=== PATIENT | male | born 1955 | race Caucasian/White ===

== ENCOUNTER 2021-05-11 09:30 | Inpatient (IN) | payer OTHER ==
[~2021-05-11] VITALS: Ht 177.8 cm; Wt 125.2 kg
[~2021-05-11 09:30] MED LIST: SINGULAIR; ZYRTEC
[2021-05-11 09:46] VITALS: BP 137/91
[2021-05-11] MEDS ORDERED: LISINOPRIL10 MG PO (09:52)
[2021-05-11] MEDS ORDERED: XARELTO20 MG PO (09:53)
[2021-05-11] MEDS ORDERED: EYE DROPS (09:53)
[2021-05-11 10:24] LABS: ABSOLUTE EOSINOPHILS 0.1 thou/uL (0.0-0.7); ABSOLUTE LYMPHOCYTES 1.5 thou/uL (0.8-5.3); ABSOLUTE MONOCYTES 0.5 thou/uL (0.0-1.2); ABSOLUTE NEUTROPHILS 3.6 thou/uL (1.6-8.1); BASOPHILS 0.7 %; HEMATOCRIT 40.1 % (42.0-52.0); HEMOGLOBIN 13.6 gm/dL (14.0-18.0); LYMPHOCYTES 25.2 %; MCH 26.8 pg (26.0-34.0); MCHC 33.8 g/dL (28.0-37.0); MCV 79.4 fL (80.0-100.0); MONOCYTES 9.3 %; MPV 7.3 fl. (7.2-11.1); NUCLEATED RBCS 0 /100WBC; PLATELET COUNT* 217 thou/uL (150-400); POLYS 62.8 %; RBC 5.05 mil/uL (4.50-6.00); RDW-CV 13.8 % (10.5-14.5); WBC 5.8 thou/uL (4.0-11.0)
[2021-05-11 10:29] LABS: CALCIUM 8.8 mg/dL (8.5-10.1); CREATININE 1.1 mg/dL (0.6-1.3); POTASSIUM 4.1 mmol/L (3.5-5.1)
[2021-05-11 10:40] LABS: ALBUMIN 3.8 g/dL (3.4-5.0); TOTAL BILIRUBIN 0.7 mg/dL (<0.1-1.0); TOTAL PROTEIN 7.9 g/dL (6.4-8.2)
[2021-05-11 11:11] LABS: APTT 22.6 Seconds (25.0-31.3); PROTIME 10.8 Seconds (9.20-11.50)
--- NOTE | 2021-05-11 14:38 | EKG ---
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1955 Requested By: Malathi Sweet Order Number: [id number] MD: Stanley Page Measurements Intervals [place] Rate: 101 P: 61 NM: 168 QRS: -37 QRSD: 103 T: 42 QT: 345 QTc: 448 Interpretive Statements Sinus tachycardia Abnormal R-wave progression, late transition Inferior infarct, old No previous ECG available for comparison Electronically Signed On 05-11-2021 14:38:36 CDT by Stanley Page [email or web address] <ELECTRONICALLY SIGNED> By: Stanley Page MD, FAC 05/11/21 1438 1003 1003 Stanley Paeg MD, [facility] /EPI
[2021-05-11 19:07] VITALS: BP 132/79
[2021-05-11 20:00] VITALS: BP 141/82
[2021-05-12 01:10] VITALS: BP 111/60
[2021-05-12 04:25] VITALS: BP 127/64
[2021-05-12 04:35] LABS: CALCIUM 8.1 mg/dL (8.5-10.1); CREATININE 0.9 mg/dL (0.6-1.3); POTASSIUM 4.5 mmol/L (3.5-5.1)
--- NOTE | 2021-05-12 05:26 | NUR ---
ASSUMED PT CARE AT 1930. PT IN ROOM RESTING IN BED W/ AT BEDSIDE. PT IS IS A/OX4. PT DENIES C/O BUT REPORTS SOME PAIN IN BL CALVES. PT WAS ADMITTED FOR "BILATERAL FEMORAL DVT, BILATERAL CENTRAL PULMONARY" CLOTS. PT HAS BEEN GETTING UP TO BATHROOM FOR BM. PT USED URINAL DURING NOC. PT C/O HEADACHE THIS AM. MEDICATIONS ADMINISTERED PRESCRIBED. ADMISSION ASSESSMENTS COMPLETE CHARTED. FALL PRECAUTIONS IN PLACE FOR SAFETY. PT CURRENTLY IN BED ASLEEP. 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 HOURLY ROUNDS COMPLETE CHARTED. WILL CONT. TO MONITOR.
[2021-05-12 06:00] LABS: HEMATOCRIT 36.5 % (42.0-52.0); HEMOGLOBIN 12.3 gm/dL (14.0-18.0); MCH 26.5 pg (26.0-34.0); MCHC 33.7 g/dL (28.0-37.0); MCV 78.8 fL (80.0-100.0); MPV 7.6 fl. (7.2-11.1); RBC 4.63 mil/uL (4.50-6.00); RDW-CV 13.4 % (10.5-14.5); WBC 6.2 thou/uL (4.0-11.0)
[2021-05-12 08:00] VITALS: BP 132/76
[2021-05-12 11:57] VITALS: BP 144/82
--- NOTE | 2021-05-12 13:27 | NUR ---
Pt is A&O. Resides at home with . Independent. No DME. No hx of HH or SNF. Goal is home at dc, no needs anticipated. IR following. Hemo consult. Anticipate dc in a few days.
--- NOTE | 2021-05-12 15:30 | NUR ---
1400: PATIENT C/O CHEST PAIN AT THIS TIME. DR. NARVAEZ PAGED. NEW ORDERS FOR STAT EKG AND TROPONIN LAB DRAW. ORDER FOR NYTROGLYCERIN. WILL CONTINUE TO MONITOR.
--- NOTE | 2021-05-12 16:13 | NUR ---
Consulted Dr. Hughes regarding possible thrombectomy of bilateral PE. Dr. Hughes states nothing to offer patient as there is no right ventricle involvement and patient does not meet criteria. Suggested possible TPA and to manage medically.
--- NOTE | 2021-05-12 16:40 | EKG ---
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1955 Requested By: Blanche Harley Order Number: [id number] Reading MD: Shola Laboy Measurements Intervals [place] Rate: 86 P: 45 ME: 158 QRS: -42 QRSD: 112 T: 46 QT: 383 QTc: 458 Interpretive Statements Sinus rhythm Borderline IVCD with LAD Possible inferior scar Low voltage, precordial leads Compared to ECG 05/11/2021 10:03:18 Low QRS voltage now present Sinus tachycardia no longer present Myocardial infarct finding persists Electronically Signed On 05-12-2021 16:40:24 CDT by Shola Laboy [email or web address] <ELECTRONICALLY SIGNED> By: Shola Laboy MD, [facility] 05/12/21 1640 140 140 Shola Laboy MD, [facility] /EPI
[2021-05-12 16:52] VITALS: BP 117/56
--- NOTE | 2021-05-12 18:12 | NUR ---
PATIENT RESTING IN BED WITH FAMILY AT BEDSIDE. C/O CHEST PAIN/DISCOMFORT X1. NITRO X1 GIVEN, EKG AND TROPONIN DONE. TROPONIN WNL. LEFT CALF TENDER TO TOUCH. PATIENT REMAINS ON BEDREST. IV TO RIGHT AC, SALINE LOCKED, PATENT. BED IN LOW/LOCKED POSITION. CALL LIGTH WITHIN REACH. ALL QUESTIONS AND CONCERNS ADDRESSED.
[2021-05-12] MEDS ORDERED: LATANOPROST 0.2.5 ML OPHTHALMIC (21:06)
[2021-05-12] MEDS ORDERED: XALATAN2.5 ML EA. EYE (21:06)
[2021-05-13] VITALS (7 sets, daily range): BP systolic 127–150; BP diastolic 71–99
[2021-05-13 04:38] LABS: HEMATOCRIT 36.8 % (42.0-52.0); HEMOGLOBIN 12.4 gm/dL (14.0-18.0); MCH 26.7 pg (26.0-34.0); MCHC 33.7 g/dL (28.0-37.0); MCV 79.4 fL (80.0-100.0); MPV 7.4 fl. (7.2-11.1); RBC 4.63 mil/uL (4.50-6.00); RDW-CV 13.6 % (10.5-14.5); WBC 6.5 thou/uL (4.0-11.0)
[2021-05-13 04:49] LABS: CALCIUM 8.2 mg/dL (8.5-10.1); CREATININE 0.9 mg/dL (0.6-1.3); POTASSIUM 4.1 mmol/L (3.5-5.1)
--- NOTE | 2021-05-13 07:15 | NUR ---
CHANGE OF SHIFT BEDSIDE REPORT GIVEN PATIENT SEEN AT BEDSIDE, IN BED WATCHING TV ASSUMED PATIENT CARE
--- NOTE | 2021-05-13 13:09 | NUR ---
Anticipate dc in 1-2 days. Plan to switch lovenox to oral. Hemo/onc consulted. No needs anticipated at dc.
[2021-05-13] MEDS ORDERED: XARELTO15 MG PO (19:46)
--- NOTE | 2021-05-16 13:02 | CON ---
[address] [address] CONSULTATION Name: ANITHA MALAVE Room: [address] IN .R.#: [id number] Admission: 05/11/21 Attend Phys: Kellee Cervantes Discharge: 05/13/21 Date of : 59 Report #: [id number] THIS REPORT FOR: cc: Minerva Lang Tara DO Elia, Manana MD ~ DATE OF CONSULTATION: 05/12/2021 REASON FOR CONSULTATION: Bilateral PE, DVT. REFERRING PHYSICIAN: Dr. Harley. HISTORY OF PRESENT ILLNESS: The patient is a pleasant 66-year-old gentleman who has history of bilateral DVT, has been on Xarelto. He ran out of Xarelto and discontinued for several days. He presented to emergency room with complaints of shortness of breath. He was found to have bilateral pulmonary embolism with bilateral DVT. The patient is admitted to the hospital. He is on Lovenox. Hematology consult is requested. He is feeling okay. He is not on oxygen. He does have some shortness of breath on exertion, but otherwise doing okay. Denies lower extremity edema or pain. Denies chest pain, lightheadedness. He does not have complaints of melena or hematochezia. PAST MEDICAL HISTORY: Significant for DVT in 12/2019. He was on anticoagulation. DVT was discovered in left lower extremity. He underwent knee replacement in August, anticoagulation was discontinued. The patient was given postop Xarelto for 2 weeks. After he discontinued Xarelto, he did not initiate long-term anticoagulation. Shortly after he developed right lower extremity DVT and was placed on Xarelto indefinitely. He has not seen a records management specialist. He does not have complaints of weight loss. Last colonoscopy was done 2 years ago. PAST MEDICAL HISTORY: Otherwise, unremarkable. He has history of hypertension, diabetes mellitus, cholelithiasis. SOCIAL HISTORY: He does not smoke. FAMILY HISTORY: Noncontributory. There is no family history of venous thrombosis. REVIEW OF SYSTEMS: See above. PHYSICAL EXAMINATION: GENERAL: Reveals a mildly overweight man, not in acute distress. VITAL SIGNS: Blood pressure 132/76, heart rate is 79, temperature 99.3, respirations 16. [place] [address] CONSULTATION Name: ANITHA MALAVE Room: [address]#: [id number] Admission: 05/11/21 Attend Phys: Kellee Cervantes Discharge: 05/13/21 Date of : 59 Report #: [id number] HEENT: Does not reveal thrush. NECK: Supple. HEART: Normal S1, S2. LUNGS: Clear. ABDOMEN: Obese. EXTREMITIES: Lower extremities with no edema. There is no peripheral lymphadenopathy. SKIN: No rash. MENTAL STATUS: Alert, oriented x3. LABORATORY DATA: White count 6.2, hemoglobin 12.3, platelets 221, MCV 78.8. D-dimer is 6.53. CT of chest reviewed shows bilateral PE with large central emboli extending into bilateral lower lobe and upper lobe. Doppler ultrasound showed bilateral DVT in both lower extremities. ASSESSMENT AND PLAN: 1. Pulmonary embolism/deep venous thrombosis. The patient is on Lovenox. IR has been consulted for possible catheter-directed thrombolysis. The patient is hemodynamically stable. Agree with anticoagulation. The patient needs chronic anticoagulation indefinitely. I am planning to order a factor V Leiden mutation, prothrombin gene mutation, anticardiolipin antibodies. 2. Microcytosis. The patient has mild microcytic anemia. I am planning to check ferritin level and stool Hemoccult. Thank you very much for allowing me to participate in the care of this patient. <ELECTRONICALLY SIGNED> By: Shikha Tran MD 05/16/21 1302 1910 [id number] Tran MD /nt
== END 2021-05-13 20:30 | disposition home or self-care (01) | DRG 299 ==
LOC: M.ERS 09:30 → M.TBA-ER 13:25 → M.2W 13:25
PROVIDERS: Internal Medicine Hematology & Oncology; Nurse Practitioner Family; ADMIT Internal Medicine; ATTEND Internal Medicine
DX: I82.413 Acute embolism and thrombosis of femoral vein, bilateral (principal); I26.99 Other pulmonary embolism without acute cor pulmonale; K80.20 Calculus of gallbladder without cholecystitis without obstruction; I10 Essential (primary) hypertension; E11.9 Type 2 diabetes mellitus without complications; Z20.822 Contact with and (suspected) exposure to COVID-19; Z96.652 Presence of left artificial knee joint; Z86.718 Personal history of other venous thrombosis and embolism; Z79.899 Other long term (current) drug therapy

== ENCOUNTER 2021-06-09 01:21 | Observation (INO) | payer OTHER ==
[~2021-06-09] VITALS: Ht 177.8 cm; Wt 125.6 kg
[~2021-06-09 01:21] MED LIST changes: +EYE DROPS; +LATANOPROST 0.2.5 ML OPHTHALMIC; +LISINOPRIL10 MG PO; +XALATAN2.5 ML EA. EYE; +XARELTO15 MG PO; +XARELTO20 MG PO
[2021-06-09 01:33] VITALS: BP 143/88
[2021-06-09] MEDS ORDERED: XARELTO20 MG PO (01:39)
[2021-06-09] MEDS ORDERED: METFORMIN HCL500 M3 PO (01:40)
[2021-06-09] MEDS ORDERED: SINGULAIR 10 MG10 MG PO (01:40)
[2021-06-09 02:11] LABS: ABSOLUTE EOSINOPHILS 0.2 thou/uL (0.0-0.7); ABSOLUTE LYMPHOCYTES 2.3 thou/uL (0.8-5.3); ABSOLUTE MONOCYTES 0.7 thou/uL (0.0-1.2); ABSOLUTE NEUTROPHILS 2.4 thou/uL (1.6-8.1); BASOPHILS 0.8 %; HEMATOCRIT 40.1 % (42.0-52.0); HEMOGLOBIN 12.8 gm/dL (14.0-18.0); MCH 25.5 pg (26.0-34.0); MCHC 31.9 g/dL (28.0-37.0); MCV 80.1 fL (80.0-100.0); MONOCYTES 12.2 %; MPV 7.4 fl. (7.2-11.1); NUCLEATED RBCS 0 /100WBC; PLATELET COUNT* 237 thou/uL (150-400); RBC 5.01 mil/uL (4.50-6.00); RDW-CV 13.7 % (10.5-14.5); WBC 5.6 thou/uL (4.0-11.0)
[2021-06-09 02:15] LABS: CALCIUM 8.2 mg/dL (8.5-10.1); CREATININE 1.2 mg/dL (0.6-1.3); POTASSIUM 4.4 mmol/L (3.5-5.1)
[2021-06-09 02:17] LABS: APTT 28.8 Seconds (25.0-31.3); INR 1.2
[2021-06-09 02:20] LABS: ALBUMIN 3.9 g/dL (3.4-5.0); MAGNESIUM 1.8 mg/dL (1.8-2.4); TOTAL BILIRUBIN 0.5 mg/dL (<0.1-1.0); TOTAL PROTEIN 7.3 g/dL (6.4-8.2)
[2021-06-09 04:05] LABS: URINE BILIRUBIN NEGATIVE (Negative); URINE BLOOD NEGATIVE (Negative); URINE CLARITY CLEAR; URINE COLOR STRAW; URINE GLUCOSE-RANDOM TRACE (Negative); URINE KETONES NEGATIVE (Negative); URINE LEUKOCYTES-REFLEX NEGATIVE (Negative); URINE NITRITE-REFLEX NEGATIVE (Negative); URINE PROTEIN NEGATIVE (Negative); URINE UROBILINOGEN 0.2 E.U./dl (0.2-1.0)
[2021-06-09 08:17] VITALS: BP 114/78
[2021-06-09 10:41] VITALS: BP 111/77
--- NOTE | 2021-06-09 11:09 | EKG ---
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: CASSANDRA : 1955 Requested By: Rachel Meng Order Number: [id number] MD: Julius Garcia Measurements Intervals [place] Rate: 81 P: 7 [place]: 147 QRS: -39 QRSD: 108 T: 44 QT: 378 QTc: 439 Interpretive Statements Sinus rhythm Left axis deviation Compared to ECG 05/12/2021 14:07:26 no change Electronically Signed On 06-09-2021 11:09:15 CDT by Julius Garcia [email or web address] <ELECTRONICALLY SIGNED> By: Julius Garcia MD, [facility] 06/09/21 1109 0129 Julius Garcia MD, [facility] /EPI
--- NOTE | 2021-06-09 13:12 | 2DMMODE ---
[place] [address] 2 D/M-MODE ECHOCARDIOGRAM Name: ANITHA MALAVE Room: [address] Abdirizak#: [id number] Admission: 06/09/21 Attend Phys: Meeta Quiroz, Discharge: Date of : 59 Date of Service: 06/09/21 1312 Report #: [id number] THIS REPORT FOR: cc: Minerva Lang,Minerva Irby,Julius Stanley MD [facility] ~ APPROVED REPORT Study performed: 06/09/2021 10:35:13 EXAM: Comprehensive 2D, Doppler, and color-flow Echocardiogram Patient Location: In-Patient Room #: er Status: routine BSA: 2.40 HR: 80 bpm BP: 111/77 mmHg Rhythm: NSR Other Information Study Quality: Adequate Indications Chest Pain 2D Dimensions IVSd: 9.25 (7-11mm) LVOT Diam: 19.03 (18-24mm) LVDd: 53.34 mm PWd: 10.39 (7-11mm) Ascending Ao: 34.84 (22-36mm) LVDs: 23.27 (25-40mm) Aortic Root: 34.11 mm Volumes Left Atrial Volume (Systole) LA ESV Index: 19.90 mL/m2 Aortic Valve AoV Peak Jaskaran.: 1.81 m/s AO Peak Gr.: 13.09 mmHg LVOT Max P.46 mmHg AO Mean Gr.: 7.72 mmHg LVOT Mean P.03 mmHg LVOT Max V: 1.54 m/s AO V2 VTI: 34.05 cm LVOT Mean V: 0.89 m/s ANTOLIN (VTI): 2.29 cm2 LVOT V1 VTI: 27.42 [place] [address] 2 D/M-MODE ECHOCARDIOGRAM Name: ANITHA MALAVE Room: [address]#: [id number] Admission: 06/09/21 Attend Phys: Meeta Quiroz, Discharge: Date of : 59 Date of Service: 06/09/21 1312 Report #: [id number] Mitral Valve E/A Ratio: 1.05 MV Decel. Time: 186.47 ms MV E Max Jaskaran.: 0.97 m/s MV PHT: 54.08 ms MVA (PHT): 4.07 cm2 TDI E/Lateral E': 6.47 E/Medial E': 6.93 Medial E' Jaskaran.: 0.14 m/s Lateral E' Jaskaran.: 0.15 m/s Pulmonary Valve PV Peak Jaskaran.: 1.13 m/s PV Peak Gr.: 5.14 mmHg Tricuspid Valve RAP Estimate: 5.00 mmHg TR Peak Gr.: 23.19 mmHg RVSP: 28.00 mmHg PA Pressure: 28.00 mmHg Left Ventricle The left ventricle is normal size. There is normal LV segmental wall motion. There is normal left ventricular wall thickness. Left ventricular systolic function is normal. The left ventricular ejection fraction is within the normal range. LVEF is 60-65%. The left ventricular diastolic function is normal. Right Ventricle The right ventricle is normal size. The right ventricular systolic function is normal. Atria The left atrium size is normal. The right atrium size is normal. Aortic Valve Mild aortic valve sclerosis. No aortic regurgitation is present. There is no aortic valvular stenosis. Mitral Valve The mitral valve is normal in structure. There is no mitral valve regurgitation noted. No evidence of mitral valve stenosis. Tricuspid Valve The tricuspid valve is normal in structure. Trace tricuspid regurgitation. [place] [address] 2 D/M-MODE ECHOCARDIOGRAM Name: ANITHA MALAVE Room: [address]#: [id number] Admission: 06/09/21 Attend Phys: Meeta Quiroz, Discharge: Date of : 59 Date of Service: 06/09/21 1312 Report #: [id number] Pulmonic Valve The pulmonary valve is normal in structure. There is no pulmonic valvular regurgitation. Great Vessels The aortic root is normal in size. IVC is normal in size and collapses >50% with inspiration. Pericardium There is no pericardial effusion. <Conclusion> LVEF is 60-65%. Trace tricuspid regurgitation. No pulmonary hypertension. <ELECTRONICALLY SIGNED> By: Julius Garcia MD, FACC 06/09/211311 11 11 Julius Garcia MD, FACC /INF
--- NOTE | 2021-06-09 14:14 | CON ---
[address] [address] CONSULTATION Name: ANITHA MALAVE Room: [address] M.R.#: [id number] Admission: 06/09/21 Attend Phys: Meeta Quiroz MD Discharge: Date of : 59 Report #: [id number] THIS REPORT FOR: cc: Minerva Lang,Julius Cordova MD [facility] ~ cc: Minerva Lang DO DATE OF CONSULTATION: 06/09/2021 CARDIOLOGY CONSULTATION HISTORY OF PRESENT ILLNESS: The patient is a 66-year-old white male who I was asked to see in the hospital today after he complained of chest pain. The patient has an extensive and complicated past medical history. In 1999, he apparently was found to have DVT of his left leg when he complained of swelling and edema. He was placed on Xarelto. 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 Recently, he complained of shortness of breath and he was admitted to [facility] last month and was diagnosed with DVT and pulmonary embolus. He was placed back on Xarelto. He was just discharged a couple weeks ago. He is not very active at this time. He came to the Emergency Room yesterday complaining of a sharp chest pain. It goes into his back. It did make him somewhat short of breath. It was not related to food or exertion. He has had no bleeding. Denied trauma to his chest. He did notice his heart was racing, but had no syncope. PAST MEDICAL HISTORY: He has had knee surgery, hernia fixed, hypertension, diabetes. CURRENT MEDICATIONS: Consist of lisinopril, metformin, Xarelto. ALLERGIES: He has no known drug allergies. FAMILY HISTORY: His brother had coronary stents. SOCIAL HISTORY: He is . He and his live in [place], [place]. 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 No smoking or alcohol abuse. REVIEW OF SYSTEMS: He is 5 feet 10 inches, 277 pounds. No history of stroke. He does have asthma, uses inhalers. No history of liver disease, kidney disease. He had a basal cell carcinoma removed in the past. No psychiatric illness. No chronic skin condition. PHYSICAL EXAMINATION: GENERAL: Revealed a large middle-aged male who appeared [place] [address] CONSULTATION Name: ANITHA MALAVE Room: [address]#: [id number] Admission: 06/09/21 Attend Phys: Meeta Quiroz MD Discharge: Date of : 59 Report #: [id number] VITAL SIGNS: He had a blood pressure of 110/70, his pulse is 70, he is afebrile. HEENT: He was anicteric. Conjunctivae are pink. Mucous membranes were moist. NECK: Veins did not appear distended. Neck was supple. No carotid bruits. CHEST: Clear to auscultation. CARDIAC: Regular rate and rhythm without murmur. ABDOMEN: Obese. EXTREMITIES: Had no pitting edema. Posterior tibial pulse 2+ bilaterally. SKIN: Cool and dry. NEUROLOGIC: Nonfocal. PSYCHIATRIC: His mood is appropriate. IMAGING DATA: ECG showed sinus rhythm with early transition, but there was no significant ST or T-wave changes noted. LABORATORY WORK: His creatinine is 1.2, glucose 192. His liver function studies were normal. Troponins were all less than 0.06. His white blood cell count 5.6, hemoglobin 12.8. His COVID antigen stat test was negative. The patient had a portable chest x-ray last night that showed poor inspiration, elevated right hemidiaphragm, no evidence of pneumonia. He actually had a venous duplex scan of his legs on 05/11 which showed extensive lower extremity DVT. He had a CT scan of the chest on 05/11 which showed large bilateral pulmonary emboli, no coronary calcification, no pericardial effusion, atherosclerosis of the thoracic aorta. IMPRESSION AND RECOMMENDATIONS: 1. Chest pain. Atypical for angina. No ECG changes, no rise in cardiac enzymes. Suspect noncardiac. I would obtain an echocardiogram. 2. Recent deep venous thrombosis and pulmonary embolism. The patient on Xarelto. 3. Hypertension. The patient is on klqwqmvrkwg-bktpmeinbq-jwtqov inhibitor. 4. Diabetes. The patient is on metformin. 5. Obesity. 6. History of asthma. <ELECTRONICALLY SIGNED> By: Julius Garcia MD, FACC 06/09/21 1414 0755 [id number] angel Garcia MD, FACC /nt
== END 2021-06-09 11:30 | disposition home or self-care (01) ==
LOC: M.ERS 01:21 → M.TBA-ER 04:05
PROVIDERS: Personal Emergency Response Attendant; ADMIT Internal Medicine; ATTEND Internal Medicine
DX: R07.89 Other chest pain (principal); Z20.822 Contact with and (suspected) exposure to COVID-19; I26.99 Other pulmonary embolism without acute cor pulmonale; I82.409 Acute embolism and thrombosis of unspecified deep veins of unspecified lower extremity; I10 Essential (primary) hypertension; E11.9 Type 2 diabetes mellitus without complications; E66.9 Obesity, unspecified; J45.909 Unspecified asthma, uncomplicated; Z79.84 Long term (current) use of oral hypoglycemic drugs; Z79.01 Long term (current) use of anticoagulants; Z79.899 Other long term (current) drug therapy